=== PATIENT | male | born 1975 | race Caucasian/White ===

== ENCOUNTER 2016-08-24 12:12 | Emergency (ER) | payer OTHER ==
[~2016-08-24] VITALS: Ht 180.3 cm; Wt 76.1 kg
[2016-08-24 12:20] VITALS: TEMP 36.6; Ht 180.3 cm; Wt 76.1 kg
--- NOTE | 2016-08-24 12:52 | DIAGNOSTIC IMAGING REPORT ---
RIGHT WRIST 3 VIEWS HISTORY: wrist pain Right COMPARISON: None. FINDINGS: There is no fracture or dislocation. Soft tissues are unremarkable. No radiopaque foreign bodies. Prior amputation of the right thumb. IMPRESSION: No fractures. Electronically signed by: Ronaldo Blackwood M.D. 08/24/2016 12:51 PM Dictated Date/Time: 08/24/2016 12:49 PM
--- NOTE | 2016-08-24 12:58 | EMERGENCY ROOM VISIT NOTE ---
ED Visit Note First contact with patient: 12:26 CHIEF COMPLAINT: Right wrist and forearm pain HISTORY OF PRESENT ILLNESS: This 40-year-old male presents the ER with chief complaint of right wrist and forearm pain which started 3 days ago after he was wrestling with his son. The patient states the pain starts in his wrist and radiates up his forearm. The patient has been taking Tylenol and ibuprofen for pain. Last dose of Motrin was 400 mg one hour ago. The patient had prior amputation of the right thumb in 2013. The patient denies any numbness and tingling in his fingers. REVIEW OF SYSTEMS: 6 system review was performed and was negative unless stated otherwise in history of present illness. PMH: The patient is healthy; right thumb amputation SOCIAL HISTORY: Patient lives with his family. The patient admits to tobacco use but denies any alcohol use. PHYSICAL EXAM: Vital Signs: Were reviewed Reviewed Nurse's notes. GENERAL: 40- year-old white male appears in no acute distress. MENTAL Status: Alert and oriented 3. RIGHT WRIST: Amputation of the right thumb is noted. No other gross bony deformity noted. No erythema or edema noted. The patient has tenderness palpation over the volar aspect of the wrist. Limited range of motion secondary to pain. Positive Km's. Negative Tinel's negative Phalen's . EMERGENCY DEPARTMENT COURSE: The patient was evaluated. X-ray of the right wrist was ordered and interpreted by the radiologist and myself. DIAGNOSTICS:RIGHT WRIST 3 VIEWS HISTORY: wrist pain Right COMPARISON: None. FINDINGS: There is no fracture or dislocation. Soft tissues are unremarkable. No radiopaque foreign bodies. Prior amputation of the right thumb. IMPRESSION: No fractures. Electronically signed by: Ronaldo Blackwood M.D. 08/24/2016 12:51 PM Dictated Date/Time: 08/24/2016 12:49 PM The patient was informed of the findings. The patient was placed in a wrist lacer splint. The patient was discharged home in stable condition. DIAGNOSIS: Tendonitis of the right wrist DISCHARGE INSTRUCTIONS AND TREATMENT: Wrist splint for 4 - 5 days. Ice to the swollen area frequently over the next 2 days. Take Voltaren as prescribed. May also take Tylenol but do not take [id number] ibuprofen, Motrin or Aleve while taking the Voltaren. If symptoms are not improving in 4-5 days recommend follow-up with your family physician. Current/Historical Medications No Active Prescriptions or Reported Meds Allergies Coded Allergies: No Known Allergies (Unverified , 12/22/15) Vital Signs Date Time Temp Pulse Resp B/P Pulse Ox O2 Delivery O2 Flow Rate FiO2 08/24/16 12:20 36.6 61 18 128/85 99 Departure Information Prescriptions No Active Prescriptions or Reported Meds Referrals No Doctor, Assigned (PCP) Patient Instructions [facility]
[2016-08-24] MEDS ORDERED: DICL75TA2 PO (12:59)
[2016-08-24 13:03] VITALS: BP 132/83; PULSE 54; O2SAT 99
== END 2016-08-24 13:05 | disposition home or self-care (01) ==
LOC: C.EDB 12:13 → C.EDD 13:05
DX: M77.8 Other enthesopathies, not elsewhere classified (principal); F17.200 Nicotine dependence, unspecified, uncomplicated